=== PATIENT | male | born 1980 | race Caucasian/White ===

== ENCOUNTER 2024-11-27 20:35 | Emergency (ER) | payer OTHER, SELFPAY ==
[2024-11-27 20:39] VITALS: BP 138/65
[2024-11-27] MEDS: ATIVAN 1 MG IV (20:40)
[2024-11-27 20:41] VITALS: BP 138/65
[2024-11-27 20:53] VITALS: BMI 28.7
[2024-11-27 21:00] VITALS: BP 133/74
--- NOTE | 2024-11-27 21:00 | ED.GENMED ---
History of Present Illness
General
Chief Complaint: Chest Pain
Source: patient, records and spouse
Exam Limitations: none
Time Seen by Provider: 11/27/24 20:37
Nursing documentation reviewed up to this point in time: agreed with
History of Present Illness
History of Present Illness:
44-year-old male with a past medical history of hypertension, hyperlipidemia, CAD status post stent in 2020 who presents to the emergency department via EMS accompanied by his ; presents for evaluation of tachycardia and chest pressure. Patient
reports onset of symptoms just prior to arrival�he was taking his normal nighttime medications which includes a marijuana gummy which helps with his anxiety. He says that tonight he used a different type of marijuana gummy which he has not used
before; he did not change the dosing but shortly after ingestion of this he started to have palpitations and racing heart. He began to have significant pressure in his chest. Family called EMS to bring him to the hospital. EMS gave him 250 cc of
fluid and 3 to 24 mg of aspirin. On arrival here he complains of severe pressure in the chest and palpitations. He is hyperventilating. He says that he feels paresthesias in his extremities. Review of records shows cardiac catheterization in
2021 which showed widely patent stent with no other significant disease.
Past History
Past History
ED Past Medical History: CAD, HTN and Hypercholesterolemia
ED Past Surgical History: Cardiac (Cardiac stent LAD 08/09/2021)
Social History
Tobacco: Non-smoker
Alcohol: Occasional
Drug: None
Personal:
Living: with family
Employment: Employed
Review of Systems
Review of Systems
All Other Systems: ROS reviewed and negative except as documented in HPI and ROS
Cardiac: Reports chest pain and palpitations
ABD/GI: Denies abdominal pain, nausea or vomiting
Musculoskeletal: Denies neck pain or back pain
Neurological: Reports dizzy and other (Paresthesias); Denies headache
Phy Exam
Physical Exam
Physical Exam:
General: Awake, alert, extremely anxious appearing, hyperventilating
Head: Normocephalic, atraumatic
Eyes: Conjunctiva normal, sclera anicteric
Throat: Airway intact, handling secretions
Neck: Trachea midline, supple without meningismus
Lungs: Clear to auscultation bilaterally, no wheezing, rales, rhonchi
Heart: Tachycardia with regular rhythm, no murmurs, gallops, or rubs
Abd: Soft, non distended, nontender
Neuro: No gross deficits
Skin: Warm and somewhat flushed, no rash
Extremities: No edema in extremities, equal pulses in all extremities
Scores
Heart Failure Risk
Heart Failure Risk Score: Not Applicable
Heart Score for Chest Pain Patients
STEMI patient?: No
History: Slightly or Non-Suspicious
ECG: Normal
Age: >45 - <65 years
Risk Factors: >/= 3 Risk Factors or History of CAD
Troponin: </= Normal Limit
Heart Score for Chest Pain Patients: 3
Heart Score Risk: 2.5% MACE over next 6 weeks
Withdrawal Assessment of Alcohol
Withdrawal Assessment Completed?: Not applicable
Course
Orders/Labs/Results
Orders:
Orders
11/27/24 20:37
Electrocardiogram (*1) Urgent
Reason for Study: Chest Pain
EKG- Treatment ONCE
Lorazepam [Ativan] 1 mg IV NOW STA
11/27/24 20:38
0.9% Sodium Chloride 500 ml [Nss] 500 ml IV BOLUS
Lorazepam [Ativan] 2 mg .ROUTE .ST-MED ONE
CR Chest Portable - 1 View Urgent
Comment:
Reason For Exam: chest pain
Reason Study Needs to be Portable: Unable to Transport
11/27/24 20:58
Complete Blood Count/With Diff Urgent
Comprehensive Metabolic Panel Urgent
Lipase Urgent
Troponin I Urgent
11/27/24 21:06
D-Dimer Urgent
11/27/24 23:45
Basic Metabolic Panel Urgent
Troponin I Urgent
Abnormal Lab Results
11/27/24
20:58
Absolute Lymphs (auto) 4.2 H 10^3/uL
(1.2-3.4)
Absolute Monos (auto) 0.7 H 10^3/uL
(0.1-0.6)
Carbon Dioxide 13 L* mmol/L
(22-30)
BUN 21 H mg/dl
(9-20)
Glucose 236 H mg/dl
(70-99)
11/27/24 20:58
Vital Signs
Initial and Last Documented VS:
Initial Vital Signs
BP
138/65
11/27/24 20:39
Last Documented Vital Signs
Temp Pulse Resp BP Pulse Ox
36.3 C 87 25 118/76 100
11/27/24 20:41 11/27/24 22:15 11/27/24 22:15 11/27/24 22:00 11/27/24 22:20
MDM/Problems Addressed
Differential Diagnosis Includes:
Panic attacks/anxiety related to THC gummy; ACS; GERD/esophagitis; pneumothorax; PE
MDM/Problems Addressed:
44-year-old male presents for evaluation of palpitations and tachycardia, chest pressure that started shortly after taking a new type of THC gummy. Vitals were significant for marked tachycardia. He is hyperventilating and appears severely anxious
on arrival. EKG shows no STEMI�sinus tachycardia with nonspecific ST changes and prolonged QTc. He was given Ativan shortly after arrival which improved anxiety and hyperventilation, heart rate down in the low 100s and patient's chest pressure
improved. Clinically I suspect that this is likely panic attack however even his history will plan to rule out alternate etiologies�will send labs including a CBC and a CMP, troponins. Check a D-dimer and a chest x-ray. Will monitor closely on
telemetry. Reassess after the above.
Labs reviewed: CBC unremarkable, CMP shows metabolic acidosis so suspect secondary to panic attack during initial assessment and blood draw. Will repeat BMP. Initial troponin undetectable�will trend repeat. D-dimer negative. Chest x-ray no acute
disease. On clinical reassessment patient is asymptomatic says he is feeling much better. Suspect panic attack related to THC gummy�if repeat troponin undetectable and repeat BMP improved will plan for discharge with outpatient follow-up. Patient
comfortable with this plan.
Chronic conditions affecting care:
CAD
*Radiology
Radiology exam reviewed: radiology read reviewed
*Pulse Oximetry
Patient hypoxic: no
*EKG
Interpreted by ED Provider?: Yes
Heart Rate: 131
Rate: tachycardiac
Rhythm: sinus and sinus tachycardia
[place]: normal axis
Interval: long QT
QRS Pattern: normal QRS
Ischemia: non-specific ST changes
*Critical Care Note
Total Time (30-74mins, 75-104mins- exclusive of procedures): Not Applicable
Data Reviewed
Review of Other/Old Records Reveals: Labs, Records and Testing
Source: patient, records, spouse and ambulance crew
ED Attending Note
-
Portions of this chart may have been created with voice recognition software.� Occasional wrong word or��sound alike� substitutions may have occurred due to the inherent limitations of voice recognition software.
Discharge Plan
Departure
Patient with high blood pressure during this ER visit?: No
Discharge Problem:
Chest pain
Instructions: Chest Pain PCP Follow Up
Prescriptions:
No Action
allopurinol 300 MG tablet
150 mg PO HS
aspirin 81 MG tablet,chewable
81 mg PO DAILY 0RF
cholecalciferol (vitamin D3) 1,000 UNITS tablet
1,000 units PO DAILY
coenzyme Q10 50 MG tablet,chewable
50 mg PO DAILY
rosuvastatin 20 mg Tablet
20 mg PO QPM
Referrals:
Amaury Patel MD [Family Provider] - Follow up in 5-7 days
Activity Restrictions/Additional Instructions:
Thank you for visiting the Emergency Department at [facility].
1. Please schedule a follow up appointment as directed. Call first thing tomorrow morning to make an appointment.
2. If indicated, please take your medications as instructed and indicated on discharge paperwork.
3. If any of your symptoms do not improve, or persist, or become more severe within 6-12 hours, please return to the emergency department for further care.
4. Please return to the emergency department if you develop a headache, neck pain/stiffness, fever greater than 100.4F, chest pain, shortness of breath, persistent nausea, vomiting, slurred speech, difficulty walking, numbness/tingling, weakness,
signs of infection or any other symptoms that are worrisome to you.
Please call [phone] if you have any questions.
Interventions
Interventions:
*Risk Screen - Suicide Last Done: 11/27/24 20:41
*General Assessment Last Done: 11/27/24 20:41
*Neglect/Abuse Screening Last Done: 11/27/24 20:41
ED- Cardiac Assessment Last Done: 11/27/24 20:53
Discharge Date and Time
Print Language: MAORI
[2024-11-27] MEDS: NSS 500 IV (21:03)
[2024-11-27 21:09] LABS: Hematocrit 40.7 % (39.0-52.0); Hemoglobin 14.7 g/dL (13.0-18.0); Mean Corp Hgb Conc. 36.1 g/dL (33.0-37.0); Mean Corpuscular Hgb 30.6 pg (27.0-31.0); Mean Corpuscular Volume 84.8 fL (80.0-94.0); Mean Platelet Volume 10.4 fL (7.4-10.4); Platelet Count 276 10^3/uL (130-400); Red Cell Dist. Width 12.5 % (11.5-14.5); White Blood Cell Count 9.6 10^3/uL (4.8-10.8)
[2024-11-27 21:25] LABS: AST (SGOT) 26 U/L (17-59); Alkaline Phosphatase 100 U/L (38-126); Blood Urea Nitrogen 21 mg/dl (9-20); Calcium 9.9 mg/dl (8.4-10.2); Carbon Dioxide 13 mmol/L (22-30); Chloride 101 mmol/L (98-107); Estimated Creatinine Clearance 81 ml/min; Glucose 236 mg/dl (70-99); Lipase 177 U/L (23-300); Potassium 3.5 mmol/L (3.5-5.1); Sodium 137 mmol/L (135-145); Total Bilirubin 0.6 mg/dl (0.2-1.3); Total Protein 7.4 g/dl (6.3-8.2); eGFR > 60.00
[2024-11-27 21:29] LABS: Troponin I < 0.012 ng/ml
[2024-11-27 21:30] LABS: D-Dimer < 0.27 ug/mlFEU (0.00-0.50)
[2024-11-27 21:34] LABS: ALT (SGPT) < 30 U/L (0-50)
[2024-11-27 21:47] LABS: % Basophils 0.5 % (0-2); % Eosinophils 0.8 % (0-6); % Immature Granulocytes 0.1 % (0-0.5); % Lymphocytes 44.3 % (20.5-51.1); % Monocytes 7.4 % (1.7-9.3); % Neutrophils 46.9 % (42.2-75.2); Absolute Basophils 0.1 10^3/uL (0-0.2); Absolute Eosinophils 0.1 10^3/uL (0-0.7); Absolute Lymphocytes 4.2 10^3/uL (1.2-3.4); Absolute Monocytes 0.7 10^3/uL (0.1-0.6); Absolute Neutrophils 4.5 10^3/uL (1.4-6.5); Nucleated Red Blood Cells % 0 % (-)
[2024-11-27 22:00] VITALS: BP 118/76
[2024-11-27 23:00] VITALS: BP 109/69
[2024-11-28] VITALS: BP 108/66
[2024-11-28 00:07] LABS: Blood Urea Nitrogen 22 mg/dl (9-20); Calcium 9.4 mg/dl (8.4-10.2); Carbon Dioxide 26 mmol/L (22-30); Chloride 103 mmol/L (98-107); Estimated Creatinine Clearance 89 ml/min; Glucose 146 mg/dl (70-99); Sodium 138 mmol/L (135-145); eGFR > 60.00
[2024-11-28 00:19] LABS: Troponin I < 0.012 ng/ml
== END 2024-11-28 00:42 | disposition home or self-care (01) ==
LOC: EMR 20:35
PROVIDERS: EMERGENCY PHYSICIAN Emergency Medicine; FAMILY PHYSICIAN Internal Medicine
DX: R07.89 Other chest pain (principal); F12.90 Cannabis use, unspecified, uncomplicated; F41.9 Anxiety disorder, unspecified; I10 Essential (primary) hypertension; E78.00 Pure hypercholesterolemia, unspecified; I25.10 Atherosclerotic heart disease of native coronary artery without angina pectoris; Z95.5 Presence of coronary angioplasty implant and graft
CPT/HCPCS: 96374; 96361; 99285; 71045; 80048; 80053; 83690; 84484; 85025; 85379; 93005